=== PATIENT | female | born 1980 | race Asian ===

== ENCOUNTER 2018-02-03 05:50 | Inpatient (IN) | payer MEDICAID, SELFPAY ==
[~2018-02-03 05:50] MED LIST: Citric Acid/Sodium Citrate Solution 30 ML Cup PO SCH; Oxytocin/0.9 % Sodium Chloride 30 UNIT/500 ML BAG IV SCH; Sodium Chloride 0.9% 2.5 ML Syringe FLUSH PRN; ceFAZolin 1 GM in Premix Bag 1 BAG IV ONE
[2018-02-03] MEDS: Lactated Ringers 1,000 ML IV SCH ×2 (06:09→07:20)
[2018-02-03] MEDS ORDERED: Sodium Chloride 0.9% 20 ML ONE ×2 (06:53→08:06)
[2018-02-03] MEDS ORDERED: ePHEDrine 50 MG/ML SDV ONE (06:53)
[2018-02-03] MEDS ORDERED: Ondansetron 4 MG/2 ML SDV ONE (06:53)
[2018-02-03] MEDS ORDERED: Morphine PF 1 MG/ML Amp ONE (06:53)
[2018-02-03] MEDS ORDERED: Oxytocin 10 Units/1 ML SDV ONE (06:55)
--- NOTE | 2018-02-03 07:20 | PCM.PREANE ---
Preanesthetic Assessment - Anesthesia/Transfusion/Family Hx Anesthesia History: Prior Anesthesia Without Reaction (spinals for c-sections only - no GA) Family History of Anesthesia Reaction: No Transfusion History: No Prior Transfusion(s) - Review of Systems General: No Symptoms Pulmonary: No Symptoms Cardiovascular: No Symptoms Gastrointestinal: No Symptoms Neurological: No Symptoms Other: Reports: None - Physical Assessment NPO Status Date: 02/02/18 NPO Status Time: 23:10 Blood Pressure: 105/76 Height: 5 ft Weight: 122 lb ASA Class: 2 Mental Status: Alert & Oriented x3 Airway Class: Mallampati = 2 Dentition: Reports: Normal Dentition Thyro-Mental Finger Breadths: 3 Mouth Opening Finger Breadths: 3 ROM/Head Extension: Full Lungs: Clear to Auscultation, Normal Respiratory Effort Cardiovascular: Regular Rate, Regular Rhythm - Lab Values: Laboratory Last Values WBC 8.22 K/uL (4.0-11.0) 02/01/18 12:00 RBC 3.83 M/uL (4.30-5.90) L 02/01/18 12:00 Hgb 10.0 g/dL (12.0-16.0) L 02/01/18 12:00 Hct 31.1 % (36.0-46.0) L 02/01/18 12:00 MCV 81.2 fL (80.0-98.0) 02/01/18 12:00 MCH 26.1 pg (27.0-32.0) L 02/01/18 12:00 MCHC 32.2 g/dL (31.0-37.0) 02/01/18 12:00 RDW Std Deviation 43.7 fl (28.0-62.0) 02/01/18 12:00 RDW Coeff of Miroslava 15 % (11.0-15.0) 02/01/18 12:00 Plt Count 138 K/uL (150-400) L 02/01/18 12:00 MPV 9.00 fL (7.40-12.00) 02/01/18 12:00 Nucleated RBC % 0.0 /100WBC 02/01/18 12:00 Nucleated RBCs # 0 K/uL 02/01/18 12:00 Blood Type B POSITIVE 02/01/18 12:00 Antibody Screen NEGATIVE 02/01/18 12:00 - Allergies Allergies/Adverse Reactions: Allergies Allergy/AdvReac Type Severity Reaction Status Date / Time No Known Allergies Allergy Verified 01/28/18 10:26 - Blood Blood Available: No Product(s) Available: None - Anesthesia Plan Free Text/Narrative:: SAB for Pt states that the previous 2 c-sections they had trouble placing her spinal "because I'm so little" - pt does not remember if they had to go to a different level, she just recalls that it took a long time - Acknowledgements Anesthesia Type Planned: Spinal Pt an Appropriate Candidate for the Planned Anesthesia: Yes Alternatives and Risks of Anesthesia Discussed w Pt/Guardian: Yes Pt/Guardian Understands and Agrees with Anesthesia Plan: Yes PreAnesthesia Questionnaire - Past Health History Medical/Surgical History: Denies Medical/Surgical History HEENT History: Reports: Other (See Below) Other HEENT History: wears glasses/contacts Genitourinary History: Reports: None PNP History: Reports: - Past Surgical History Head Surgeries/Procedures: Reports: None Female Surgical History: Reports: Section - SUBSTANCE USE Smoking Status *Q: Never Smoker Second Hand Smoke Exposure: No Recreational Drug Use History: No - HOME MEDS Home Medications: Home Meds . [No Known Home Meds] 01/28/18 [History] - CURRENT (IN HOUSE) MEDS Current Meds: Current Medications Citric Acid/Sodium Citrate (Bicitra Solution) 30 ml PO .ONCE SOSA Lactated Ringer's (Ringers, Lactated) 1,000 mls @ 500 mls/hr IV .BOLUS SOSA Last Admin: 02/03/18 06:09 Dose: 500 mls/hr Oxytocin/Sodium Chloride (Oxytocin 30 Unit/500 Ml-Ns) 30 unit in 500 mls @ 250 mls/hr IV TITRATE SOSA Sodium Chloride (Saline Flush) 10 ml FLUSH ASDIRECTED PRN PRN Reason: Keep Vein Open Sodium Chloride (Saline Flush) 2.5 ml FLUSH ASDIRECTED PRN PRN Reason: Keep Vein Open Discontinued Medications Ephedrine Sulfate (Ephedrine Sulfate) Confirm Administered Dose 50 mg .ROUTE .STK-MED ONE Stop: 02/03/18 06:54 Cefazolin Sodium/Dextrose 1 gm (/ Premix) 50 mls @ 100 mls/hr IV ONETIME ONE Stop: 02/01/18 11:47 Sodium Chloride (Normal Saline) Confirm Administered Dose 20 mls @ as directed .ROUTE .STK-MED ONE Stop: 02/03/18 06:54 Morphine Sulfate (Duramorph Pf) Confirm Administered Dose 1 mg .ROUTE .STK-MED ONE Stop: 02/03/18 06:54 Ondansetron HCl (Zofran) Confirm Administered Dose 4 mg .ROUTE .STK-MED ONE Stop: 02/03/18 06:54 Oxytocin (Pitocin) Confirm Administered Dose 20 unit .ROUTE .STK-MED ONE Stop: 02/03/18 06:56
[2018-02-03] MEDS ORDERED: Citric Acid/Sodium Citrate Solution 30 ML Cup ONE (07:38)
[2018-02-03] MEDS ORDERED: ceFAZolin 1 GM Vial ONE (08:06)
[2018-02-03] MEDS ORDERED: Glycopyrrolate 0.2 MG/ML SDV ONE ×2 (08:08→08:12)
[2018-02-03] MEDS ORDERED: diphenhydrAMINE 50 MG/ML SDV IVPUSH PRN ×2 (08:31→08:47)
[2018-02-03] MEDS ORDERED: Nalbuphine 10 MG/ML 10 ML MDV IVPUSH PRN (08:31)
[2018-02-03] MEDS ORDERED: Naloxone 0.4 MG/ML Syringe IVPUSH PRN (08:31)
[2018-02-03] MEDS ORDERED: Octyl 2-Cyanoacrylate 1 Tube ONE (08:45)
[2018-02-03] MEDS ORDERED: Ondansetron 4 MG/2 ML SDV IV PRN (08:47)
[2018-02-03] MEDS ORDERED: Bisacodyl 10 MG Supp RECTAL PRN (08:47)
[2018-02-03] MEDS ORDERED: Lanolin 100% Cream 7 GM Tube TOP PRN (08:47)
[2018-02-03] MEDS ORDERED: Acetaminophen/oxyCODONE 325-5 MG Tab PO PRN (08:47)
--- NOTE | 2018-02-03 08:50 | PCM.LDHP ---
L&D History of Present Illness - General Date of Service: 02/03/18 Admit Problem/Dx: Patient Status Order with Admit Dx/Problem 02/01/18 11:18 Patient Status [ADT] Routine 02/03/18 08:47 Patient Status [ADT] Routine Admission Diagnosis/Problem Admission Diagnosis/Problem Source of Information: Patient History Limitations: Reports: No Limitations - History of Present Illness Improves with: Reports: None Worsens with: Reports: None Associated Symptoms: Reports: N - Related Data Allergies/Adverse Reactions: Allergies Allergy/AdvReac Type Severity Reaction Status Date / Time No Known Allergies Allergy Verified 01/28/18 10:26 Home Medications: Home Meds . 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: - Past Surgical History Head Surgeries/Procedures: Reports: None Female Surgical History: Reports: Section Social & Family History - Family History Family Medical History: Noncontributory - Tobacco Use Smoking Status *Q: Never Smoker Second Hand Smoke Exposure: No - Caffeine Use Caffeine Use: Reports: Coffee, Soda - Recreational Drug Use Recreational Drug Use: No H&P Review of Systems - Review of Systems: Review Of Systems: See Below General: Reports: No Symptoms HEENT: Reports: No Symptoms Pulmonary: Reports: No Symptoms Cardiovascular: Reports: No Symptoms Gastrointestinal: Reports: No Symptoms Genitourinary: Reports: No Symptoms Musculoskeletal: Reports: No Symptoms Skin: Reports: No Symptoms Psychiatric: Reports: No Symptoms Neurological: Reports: No Symptoms Hematologic/Lymphatic: Reports: No Symptoms Immunologic: Reports: No Symptoms L&D Exam - Exam Exam: See Below - Vital Signs Vital Signs: Last Vital Signs Temp Pulse Resp BP 105/76 02/03/18 07:30 Pulse Ox Weight: 55.338 kg - OB Specific Fundal Height In cm: 38 Contraction Intensity: Mild Movement: Active Heart Tones: Present Presentation: Vertex - Exam General: Alert, Oriented HEENT: PERRLA, Conjunctiva Clear, EACs Clear, EOMI, Hearing Intact, Mucosa Moist & Ovilla, Nares Patent, Normal Nasal Septum, Posterior Pharynx Clear, TMs Clear Neck: Supple, Trachea Midline Lungs: Clear to Auscultation, Normal Respiratory Effort Cardiovascular: Regular Rate, Regular Rhythm GI/Abdominal Exam: Normal Bowel Sounds, Soft, Non-Tender, No Organomegaly, No Distention, No Abnormal Bruit, No Mass, Pelvis Stable Rectal Exam: Normal Exam, Normal Rectal Tone Genitourinary: Normal external exam, Normal bimanual exam, Normal speculum exam Back Exam: Normal Inspection, Full Range of Motion Extremities: Normal Inspection, Normal Range of Motion, Non-Tender, No Pedal Edema, Normal Capillary Refill Skin: Warm, Dry, Intact Neurological: Cranial Nerves Intact, Reflexes Equal Bilateral Psychiatric: Alert, Normal Affect, Normal Mood - Patient Data Lab Results Last 24 hrs: Laboratory Results - last 24 hr 02/01/18 Range/Units 12:00 Blood Type B POSITIVE Antibody Screen NEGATIVE Crossmatch See Detail Result Diagrams: 02/01/18 12:00 Problem List Initiated/Reviewed/Updated: Yes Orders Last 24hrs: Active Orders 24 hr Category Date Time Status Patient Status [ADT] Routine ADT 02/03/18 08:47 Ordered Ambulate [RC] PER UNIT ROUTINE Care 02/03/18 08:47 Ordered Bradycardia-Neuroaxis [employer] [RC] ROUTINE Care 02/03/18 08:31 Active Communication Order [RC] PER UNIT ROUTINE Care 02/03/18 08:47 Ordered Communication Order [RC] PER UNIT ROUTINE Care 02/03/18 08:47 Ordered Communication Order [RC] Per Unit Routine Care 02/03/18 08:47 Ordered Hypertension-Neuroaxis [employer] [RC] ROUTINE Care 02/03/18 08:31 Active Hypotension-Neuroaxis [employer] [RC] ROUTINE Care 02/03/18 08:31 Active May Shower [RC] ASDIRECTED Care 02/03/18 08:47 Ordered Oxygen Therapy [RC] PER UNIT ROUTINE Care 02/03/18 08:31 Active RT Incentive Spirometry [RC] Q2HWA Care 02/03/18 08:47 Ordered Vital Signs [RC] PER UNIT ROUTINE Care 02/03/18 08:47 Ordered Vital Signs [RC] Q1H Care 02/03/18 08:31 Active HEMOGLOBIN/HEMATOCRIT,HH [HEME] Timed Lab 02/04/18 05:11 Ordered RED BLOOD CELLS LP [BBK] Stat Lab 02/03/18 07:23 Results Acetaminophen/oxyCODONE [Percocet 325-5 MG] Med 02/03/18 08:47 Ordered 1 tab PO Q4H PRN Acetaminophen/oxyCODONE [Percocet 325-5 MG] Med 02/03/18 08:47 Ordered 2 tab PO Q4H PRN Bisacodyl [Dulcolax] Med 02/03/18 08:47 Ordered 10 mg RECTAL .ONCE PRN Docusate Sodium [Colace] Med 02/03/18 09:00 Ordered 100 mg PO BID Ibuprofen [Motrin] Med 02/03/18 08:47 Ordered 800 mg PO Q8H PRN Ketorolac [Toradol] Med 02/03/18 09:00 Ordered 30 mg IVPUSH Q6H Lactated Ringers @ 125 MLS/HR(1000ml) Med 02/03/18 09:00 Ordered Lactated Ringers [Ringers, Lactated] 1,000 ml IV ASDIRECTED Lanolin [Lansinoh HPA] Med 02/03/18 08:47 Ordered See Dose Instructions TOP ASDIRECTED PRN Nalbuphine [Nubain] Med 02/03/18 08:31 Active 5 mg IVPUSH Q3H PRN Naloxone [Narcan] Med 02/03/18 08:31 Active 0.1 mg IVPUSH ONETIME PRN Ondansetron [Zofran] Med 02/03/18 08:47 Ordered 4 mg IV Q4H PRN diphenhydrAMINE [Benadryl] Med 02/03/18 08:31 Active 25 mg IVPUSH Q4H PRN diphenhydrAMINE [Benadryl] Med 02/03/18 08:47 Ordered 25 mg IVPUSH Q6H PRN AN Neuroaxis Duramorph Precaution Reflex [OM.PC] PER Oth 02/03/18 08:45 Ordered UNIT ROUTINE AN Neuroaxis Duramorph Precaution Reflex [OM.PC] PER Ot 02/04/18 08:45 Ordered UNIT ROUTINE Assess Lochia [WOMSER] Per Unit Routine Ot 02/03/18 08:47 Ordered Assess Uterine Involution [WOMSER] Per Unit Routine Oth 02/03/18 08:47 Ordered Breast Pump [WOMSER] Per Unit Routine Oth 02/03/18 08:47 Ordered Peripheral IV Discontinue [OM.PC] Routine Oth 02/03/18 08:47 Ordered Sequential Compression Device [OM.PC] Per Unit Routine Oth 02/03/18 08:47 Ordered Medication Orders Citric Acid/Sodium Citrate (Bicitra Solution) 30 ml PO .ONCE SOSA Diphenhydramine HCl (Benadryl) 25 mg IVPUSH Q4H PRN PRN Reason: Itching Stop: 02/04/18 08:31 Lactated Ringer's (Ringers, Lactated) 1,000 mls @ 500 mls/hr IV .BOLUS SOSA Last Admin: 02/03/18 07:20 Dose: 500 mls/hr Infusion: 02/03/18 07:20 Dose: 500 mls/hr Admin: 02/03/18 06:09 Dose: 500 mls/hr Oxytocin/Sodium Chloride (Oxytocin 30 Unit/500 Ml-Ns) 30 unit in 500 mls @ 250 mls/hr IV TITRATE SOSA Nalbuphine HCl (Nubain) 5 mg IVPUSH Q3H PRN PRN Reason: Pruritis Stop: 02/04/18 08:31 Naloxone HCl (Narcan) 0.1 mg IVPUSH ONETIME PRN PRN Reason: Respiratory Depression Stop: 02/04/18 08:31 Sodium Chloride (Saline Flush) 10 ml FLUSH ASDIRECTED PRN PRN Reason: Keep Vein Open Sodium Chloride (Saline Flush) 2.5 ml FLUSH ASDIRECTED PRN PRN Reason: Keep Vein Open Assessment/Plan Comment:: Term for elective repeat C/section.
--- NOTE | 2018-02-03 08:51 | PCM.OPNOTE ---
- General Post-Op/Procedure Note Date of Surgery/Procedure: 02/03/18 Operative Procedure(s): Repeat C/ section. Pre Op Diagnosis: IUP 39+ previous C/section. Post-Op Diagnosis: Same Anesthesia Technique: Spinal Primary Surgeon: Chano Gonzales Field Control Inspector: Vanessa Carr EBL in mLs: 600 Complications: None Condition: Good
[2018-02-03] MEDS ORDERED: Lactated Ringers 1,000 ML IV SCH (09:00)
[2018-02-03] MEDS: Ketorolac 30 MG/ML SDV IVPUSH SCH ×3 (09:39→21:16)
--- NOTE | 2018-02-03 10:03 | PCM.POSTAN ---
POST ANESTHESIA ASSESSMENT - MENTAL STATUS Mental Status: Alert, Oriented - RESPIRATORY Respiratory Status: Respiratory Rate WNL, Airway Patent, O2 Saturation Stable - CARDIOVASCULAR CV Status: Pulse Rate WNL, Blood Pressure Stable, Low Blood Pressure (pt asymptomatic and runs low to begin with ) - GASTROINTESTINAL GI Status: No Symptoms - PAIN Pain Score: 0 (spinal still inctact) - POST OP HYDRATION Hydration Status: Adequate & Stable - OBSERVATIONS Free Text/Narrative:: Pt stable for discharge to phase II recovery on OB
[2018-02-03] MEDS: Docusate Sodium 100 MG Cap PO SCH ×2 (10:53→21:19)
--- NOTE | 2018-02-03 11:12 | OR ---
SURGEON: Chano Gonzales MD DATE OF PROCEDURE: POSTOPERATIVE DIAGNOSES: 1. Intrauterine , 39 weeks. 2. Previous section, admitted for elective repeat section. POSTOPERATIVE DIAGNOSES: 1. Intrauterine , 39 weeks. 2. Previous section, admitted for elective repeat section. OPERATION PERFORMED: Repeat low-transverse section. CONTACT OFFICER: JANNETTE Amaral ANESTHESIA: Spinal by Jay Dent and Britton Solis M.D. ESTIMATED BLOOD LOSS: 600 mL. COMPLICATIONS: None. FINDINGS: Female fetus, score reported to be 8 and 9. The weight is not available. INDICATION FOR SURGERY: This patient is 37. She is 39+ weeks. She has 2 previous sections. She is admitted for elective repeat section. PROCEDURE IN DETAIL: The patient brought to the OR, properly identified, and after adequate level of spinal anesthesia with a Burnett catheter in the bladder, time-out taken and after that confirmed, the patient was prepped and draped in sterile fashion as usual. Low-transverse Pfannenstiel skin incision was done through the old scar. The Galindo's fascia and rectus fascia were opened in direction of the incision. The 2 recti muscles were and peritoneal cavity was entered. Bladder flap was raised in the usual manner pushing the bladder away from the lower uterine segment. Low-transverse uterine incision was done and extended manually with the hand. Fetus was in a vertex position, delivered without any problem, cried immediately. score reported to be 8 and 9. The placenta delivered spontaneous, complete, and intact and repair of the lower uterine segment was done with 2-0 Vicryl continuous interlocking in 2 layers. The peritoneal cavity evacuated completely from all blood and blood clot and closed with 3-0 Vicryl continuous. Then the rectus fascia was closed with #1 PDS single strand continuous, the Galindo's fascia with 3-0 Vicryl continuous, and the skin closed in a subcuticular fashion with 3-0 Vicryl on a Josh needle and Dermabond. Instrument and sponge count was correct. The patient tolerated the procedure well, went to recovery room in stable general condition. SUSAN / JOSE /[id number]
--- NOTE | 2018-02-03 14:49 | PCM48HPAN ---
Post Anesthesia Note - EVALUATION WITHIN 48HRS OF ANESTHETIC Vital Signs in Normal Range: Yes Patient Participated in Evaluation: Yes Respiratory Function Stable: Yes Airway Patent: Yes Cardiovascular Function Stable: Yes Hydration Status Stable: Yes Pain Control Satisfactory: Yes Nausea and Vomiting Control Satisfactory: Yes Mental Status Recovered: Yes Resp Rate: 14 Blood Pressure: 105/76 - COMMENTS/OBSERVATIONS Free Text/Narrative:: Pt doing well postop. States she had a much better experience with the spinal this time as opposed to previous c-sections. No nausea or pain control issues.
[2018-02-04] MEDS: Ketorolac 30 MG/ML SDV IVPUSH SCH ×2 (02:47→09:09)
[2018-02-04] MEDS: Sodium Chloride 0.9% 10 ML Syringe FLUSH PRN ×3 (02:49→02:52)
--- NOTE | 2018-02-04 07:56 | PCM.PNPP ---
- General Info Date of Service: 02/04/18 Admission Dx/Problem (Free Text): Patient Status Order with Admit Dx/Problem 02/01/18 11:18 Patient Status [ADT] Routine 02/03/18 08:47 Patient Status [ADT] Routine Admission Diagnosis/Problem Admission Diagnosis/Problem Functional Status: Reports: Pain Controlled, Tolerating Diet, Ambulating, Urinating - Review of Systems General: Reports: No Symptoms HEENT: Reports: No Symptoms Pulmonary: Reports: No Symptoms Cardiovascular: Reports: No Symptoms Gastrointestinal: Reports: No Symptoms Genitourinary: Reports: No Symptoms Musculoskeletal: Reports: No Symptoms Skin: Reports: No Symptoms Neurological: Reports: No Symptoms Psychiatric: Reports: No Symptoms - Patient Data Vital Signs - Most Recent: Last Vital Signs Temp 36.3 C 02/04/18 04:00 Pulse 86 02/04/18 04:00 Resp 16 02/04/18 07:00 BP 94/60 02/04/18 04:00 Pulse Ox 95 02/04/18 07:00 Weight - Most Recent: 55.338 kg I&O - Last 24 Hours: Intake & Output 02/03/18 02/04/18 02/04/18 22:59 06:59 14:59 Intake Total 998 Output Total 185 425 Balance 813 -425 Lab Results - Last 24 Hours: Laboratory Results - last 24 hr 02/01/18 02/04/18 Range/Units 12:00 05:20 Hgb 7.8 L (12.0-16.0) g/dL Hct 24.4 L (36.0-46.0) % Blood Type B POSITIVE Antibody Screen NEGATIVE Crossmatch See Detail Med Orders - Current: Current Medications Bisacodyl (Dulcolax) 10 mg RECTAL .ONCE PRN PRN Reason: Constipation Citric Acid/Sodium Citrate (Bicitra Solution) 30 ml PO .ONCE SOSA Diphenhydramine HCl (Benadryl) 25 mg IVPUSH Q4H PRN PRN Reason: Itching Stop: 02/04/18 08:31 Diphenhydramine HCl (Benadryl) 25 mg IVPUSH Q6H PRN PRN Reason: Itching or Nausea Docusate Sodium (Colace) 100 mg PO BID SOSA Last Admin: 02/03/18 21:19 Dose: 100 mg Emollient Ointment (Lansinoh Hpa) 0 gm TOP ASDIRECTED PRN PRN Reason: Sore Nipples Lactated Ringer's (Ringers, Lactated) 1,000 mls @ 500 mls/hr IV .BOLUS [facility] Last Admin: 02/03/18 07:20 Dose: 500 mls/hr Oxytocin/Sodium Chloride (Oxytocin 30 Unit/500 Ml-Ns) 30 unit in 500 mls @ 250 mls/hr IV TITRATE [facility] Lactated Ringer's (Ringers, Lactated) 1,000 mls @ 125 mls/hr IV ASDIRECTED [facility] Ibuprofen (Motrin) 800 mg PO Q8H PRN PRN Reason: mild pain or fever Ketorolac Tromethamine (Toradol) [address] [facility] Stop: 02/04/18 09:01 Last Admin: 02/04/18 02:47 Dose: 30 mg Nalbuphine HCl (Nubain) 5 mg IVPUSH Q3H PRN PRN Reason: Pruritis Stop: 02/04/18 08:31 Naloxone HCl (Narcan) 0.1 mg IVPUSH ONETIME PRN PRN Reason: Respiratory Depression Stop: 02/04/18 08:31 Ondansetron HCl (Zofran) 4 mg IV Q4H PRN PRN Reason: Nausea/Vomiting Oxycodone/Acetaminophen (Percocet 325-5 Mg) 1 tab PO Q4H PRN PRN Reason: Pain (moderate 4-6) Oxycodone/Acetaminophen (Percocet 325-5 Mg) 2 tab PO Q4H PRN PRN Reason: Pain (moderate 4-6) Sodium Chloride (Saline Flush) 10 ml FLUSH ASDIRECTED PRN PRN Reason: Keep Vein Open Last Admin: 02/04/18 02:52 Dose: 10 ml Sodium Chloride (Saline Flush) 2.5 ml FLUSH ASDIRECTED PRN PRN Reason: Keep Vein Open Discontinued Medications Cefazolin Sodium (Ancef) Confirm Administered Dose 1 gm .ROUTE .STK-MED ONE Stop: 02/03/18 08:07 Citric Acid/Sodium Citrate (Bicitra Solution) Confirm Administered Dose 30 ml .ROUTE .STK-MED ONE Stop: 02/03/18 07:39 Last Admin: 02/03/18 07:57 Dose: 30 ml Ephedrine Sulfate (Ephedrine Sulfate) Confirm Administered Dose 50 mg .ROUTE .STK-MED ONE Stop: 02/03/18 06:54 Glycopyrrolate (Robinul) Confirm Administered Dose 0.2 mg .ROUTE .STK-MED ONE Stop: 02/03/18 08:09 Glycopyrrolate (Robinul) Confirm Administered Dose 0.2 mg .ROUTE .STK-MED ONE Stop: 02/03/18 08:13 Cefazolin Sodium/Dextrose 1 gm (/ Premix) 50 mls @ 100 mls/hr IV ONETIME ONE Stop: 02/01/18 11:47 Sodium Chloride (Normal Saline) Confirm Administered Dose 20 mls @ as directed .ROUTE .STK-MED ONE Stop: 02/03/18 06:54 Sodium Chloride (Normal Saline) Confirm Administered Dose 20 mls @ as directed .ROUTE .STK-MED ONE Stop: 02/03/18 08:07 Morphine Sulfate (Duramorph Pf) Confirm Administered Dose 1 mg .ROUTE .STK-MED ONE Stop: 02/03/18 06:54 Octyl Cyanoacrylate (Dermabond Advance) Confirm Administered Dose 1 applic .ROUTE .STK-MED ONE Stop: 02/03/18 08:46 Ondansetron HCl (Zofran) Confirm Administered Dose 4 mg .ROUTE .STK-MED ONE Stop: 02/03/18 06:54 Oxytocin (Pitocin) Confirm Administered Dose 20 unit .ROUTE .STK-MED ONE Stop: 02/03/18 06:56 - Interaction Infant Disposition, : in Room with Family Infant Interaction: Holding Infant Support Person: - Recovery Exam Fundal Tone: Firm Fundal Level: At Umbilicus Fundal Placement: Midline Lochia Amount: Scant Lochia Color: Rubra/Red Perineum Description: Intact, Minimal Bruising/Swelling Episiotomy/Laceration: None Bladder Status: Indwelling Catheter in Place Urinary Elimination: Other (see below) Other Urinary Elimination, : Due to void, skelton d/c'd 0400 - Exam General: Alert, Oriented, Cooperative, No Acute Distress Lungs: Clear to Auscultation, Normal Respiratory Effort Cardiovascular: Regular Rate, Regular Rhythm, No Murmurs GI/Abdominal Exam: Soft, Non-Tender Extremities: Normal Inspection, Normal Range of Motion, Non-Tender, No Pedal Edema, Normal Capillary Refill Skin: Warm, Dry, Intact Wound/Incisions: Healing Well Neurological: No New Focal Deficit, Normal Speech, Normal Tone, Strength Equal Bilateral Psy/Mental Status: Alert, Normal Affect, Normal Mood - Problem List & Annotations (1) Supervision of normal IUP (intrauterine ) in multigravida SNOMED Code(s): 840827064, 945875287, 605149018 Code(s): Z34.80 - ENCOUNTER FOR SUPRVSN OF NORMAL , UNSP TRIMESTER Status: Acute Priority: High Current Visit: Yes Qualifiers: Trimester: third trimester Qualified Code(s): Z34.83 - Encounter for supervision of other normal , third trimester (2) delivery delivered SNOMED Code(s): 137259006 Code(s): O82 - ENCOUNTER FOR DELIVERY WITHOUT INDICATION Status: Acute Priority: High Current Visit: Yes - Problem List Review Problem List Initiated/Reviewed/Updated: Yes - Plan Plan:: Term for elective repeat C/section. Post day 1 A: VSS, AF, Fundus -2bu, lochia small-scant, Incision dressing dry intact. bottle feeding, bonding well P: continue pp plan of care. Encouraged to walk halls and shower, dressing will be removed when wet
--- NOTE | 2018-02-04 08:52 | PCM.PNPP ---
- General Info Date of Service: 02/04/18 Functional Status: Reports: Pain Controlled - Review of Systems General: Reports: No Symptoms HEENT: Reports: No Symptoms Pulmonary: Reports: No Symptoms Cardiovascular: Reports: No Symptoms Gastrointestinal: Reports: No Symptoms Genitourinary: Reports: No Symptoms Musculoskeletal: Reports: No Symptoms Skin: Reports: No Symptoms Neurological: Reports: No Symptoms Psychiatric: Reports: No Symptoms - General Info Date of Service: 02/04/18 - Patient Data Vital Signs - Most Recent: Last Vital Signs Temp 36.3 C 02/04/18 08:00 Pulse 86 02/04/18 04:00 Resp 16 02/04/18 08:00 BP 90/53 L 02/04/18 08:00 Pulse Ox 97 02/04/18 08:00 Weight - Most Recent: 55.338 kg I&O - Last 24 Hours: Intake & Output 02/03/18 02/04/18 02/04/18 22:59 06:59 14:59 Intake Total 998 Output Total 185 425 Balance 813 -425 Lab Results - Last 24 Hours: Laboratory Results - last 24 hr 02/04/18 Range/Units 05:20 Hgb 7.8 L (12.0-16.0) g/dL Hct 24.4 L (36.0-46.0) % Med Orders - Current: Current Medications Bisacodyl (Dulcolax) 10 mg RECTAL .ONCE PRN PRN Reason: Constipation Citric Acid/Sodium Citrate (Bicitra Solution) 30 ml PO .ONCE [facility] Diphenhydramine HCl (Benadryl) 25 mg IVPUSH Q6H PRN PRN Reason: Itching or Nausea Docusate Sodium (Colace) 100 mg PO BID [facility] Last Admin: 02/03/18 21:19 Dose: 100 mg Emollient Ointment (Lansinoh Hpa) 0 gm TOP ASDIRECTED PRN PRN Reason: Sore Nipples Lactated Ringer's (Ringers, Lactated) 1,000 mls @ 500 mls/hr IV .BOLUS [facility] Last Admin: 02/03/18 07:20 Dose: 500 mls/hr Oxytocin/Sodium Chloride (Oxytocin 30 Unit/500 Ml-Ns) 30 unit in 500 mls @ 250 mls/hr IV TITRATE [facility] Lactated Ringer's (Ringers, Lactated) 1,000 mls @ 125 mls/hr IV ASDIRECTED [facility] Ibuprofen (Motrin) 800 mg PO Q8H PRN PRN Reason: mild pain or fever Ketorolac Tromethamine (Toradol) 30 mg IVPUSH Q6H [facility] Stop: 02/04/18 09:01 Last Admin: 02/04/18 02:47 Dose: 30 mg Ondansetron HCl (Zofran) 4 mg IV Q4H PRN PRN Reason: Nausea/Vomiting Oxycodone/Acetaminophen (Percocet 325-5 Mg) 1 tab PO Q4H PRN PRN Reason: Pain (moderate 4-6) Oxycodone/Acetaminophen (Percocet 325-5 Mg) 2 tab PO Q4H PRN PRN Reason: Pain (moderate 4-6) Sodium Chloride (Saline Flush) 10 ml FLUSH ASDIRECTED PRN PRN Reason: Keep Vein Open Last Admin: 02/04/18 02:52 Dose: 10 ml Sodium Chloride (Saline Flush) 2.5 ml FLUSH ASDIRECTED PRN PRN Reason: Keep Vein Open Discontinued Medications Cefazolin Sodium (Ancef) Confirm Administered Dose 1 gm .ROUTE .STK-MED ONE Stop: 02/03/18 08:07 Citric Acid/Sodium Citrate (Bicitra Solution) Confirm Administered Dose 30 ml .ROUTE .STK-MED ONE Stop: 02/03/18 07:39 Last Admin: 02/03/18 07:57 Dose: 30 ml Diphenhydramine HCl (Benadryl) 25 mg IVPUSH Q4H PRN PRN Reason: Itching Stop: 02/04/18 08:31 Ephedrine Sulfate (Ephedrine Sulfate) Confirm Administered Dose 50 mg .ROUTE .STK-MED ONE Stop: 02/03/18 06:54 Glycopyrrolate (Robinul) Confirm Administered Dose 0.2 mg .ROUTE .STK-MED ONE Stop: 02/03/18 08:09 Glycopyrrolate (Robinul) Confirm Administered Dose 0.2 mg .ROUTE .STK-MED ONE Stop: 02/03/18 08:13 Cefazolin Sodium/Dextrose 1 gm (/ Premix) 50 mls @ 100 mls/hr IV ONETIME ONE Stop: 02/01/18 11:47 Sodium Chloride (Normal Saline) Confirm Administered Dose 20 mls @ as directed .ROUTE .STK-MED ONE Stop: 02/03/18 06:54 Sodium Chloride (Normal Saline) Confirm Administered Dose 20 mls @ as directed .ROUTE .STK-MED ONE Stop: 02/03/18 08:07 Morphine Sulfate (Duramorph Pf) Confirm Administered Dose 1 mg .ROUTE .STK-MED ONE Stop: 02/03/18 06:54 Nalbuphine HCl (Nubain) 5 mg IVPUSH Q3H PRN PRN Reason: Pruritis Stop: 02/04/18 08:31 Naloxone HCl (Narcan) 0.1 mg IVPUSH ONETIME PRN PRN Reason: Respiratory Depression Stop: 02/04/18 08:31 Octyl Cyanoacrylate (Dermabond Advance) Confirm Administered Dose 1 applic .ROUTE .STK-MED ONE Stop: 02/03/18 08:46 Ondansetron HCl (Zofran) Confirm Administered Dose 4 mg .ROUTE .STK-MED ONE Stop: 02/03/18 06:54 Oxytocin (Pitocin) Confirm Administered Dose 20 unit .ROUTE .STK-MED ONE Stop: 02/03/18 06:56 - Interaction Infant Disposition, : [place] in Room with Family Infant Interaction: Holding Feeding: Attempted ; Nursed Fair/Poor Support Person: - Recovery Exam Fundal Tone: Firm Fundal Level: 1 Fingerbreadths Above Umbilicus Fundal Placement: Midline Lochia Amount: Scant Lochia Color: Rubra/Red Perineum Description: Intact, Minimal Bruising/Swelling Episiotomy/Laceration: None Bladder Status: Indwelling Catheter in Place Urinary Elimination: Other (see below) Other Urinary Elimination, : Due to void, skelton d/c'd 0400 - Exam General: Alert, Oriented HEENT: Pupils Equal Neck: Supple Lungs: Clear to Auscultation, Normal Respiratory Effort Cardiovascular: Regular Rate, Regular Rhythm GI/Abdominal Exam: Normal Bowel Sounds, Soft, Non-Tender, No Organomegaly, No Distention, No Abnormal Bruit, No Mass, Pelvis Stable Extremities: Normal Inspection, Normal Range of Motion, Non-Tender, No Pedal Edema, Normal Capillary Refill Skin: Warm, Dry, Intact Wound/Incisions: Healing Well Neurological: No New Focal Deficit Psy/Mental Status: Alert, Normal Affect, Normal Mood - Problem List Review Problem List Initiated/Reviewed/Updated: Yes - My Orders Last 24 Hours: My Active Orders 02/03/18 08:47 Patient Status [ADT] Routine Ambulate [RC] PER UNIT ROUTINE Communication Order [RC] PER UNIT ROUTINE May Shower [RC] ASDIRECTED RT Incentive Spirometry [RC] Q2HWA Acetaminophen/oxyCODONE [Percocet 325-5 MG] 1 tab PO Q4H PRN Acetaminophen/oxyCODONE [Percocet 325-5 MG] 2 tab PO Q4H PRN Bisacodyl [Dulcolax] 10 mg RECTAL .ONCE PRN Ibuprofen [Motrin] 800 mg PO Q8H PRN Lanolin [Lansinoh HPA] See Dose Instructions TOP ASDIRECTED PRN Ondansetron [Zofran] 4 mg IV Q4H PRN diphenhydrAMINE [Benadryl] 25 mg IVPUSH Q6H PRN Assess Lochia [WOMSER] Per Unit Routine Assess Uterine Involution [WOMSER] Per Unit Routine Breast Pump [WOMSER] Per Unit Routine Peripheral IV Discontinue [OM.PC] Routine Sequential Compression Device [OM.PC] Per Unit Routine 02/03/18 09:00 Docusate Sodium [Colace] 100 mg PO BID Ketorolac [Toradol] 30 mg IVPUSH Q6H Lactated Ringers [Ringers, Lactated] 1,000 ml IV ASDIRECTED - Assessment Assessment:: Status post section postoperative day #1 patient is doing well. - Plan Plan:: Term for elective repeat C/section. Post day 1 A: VSS, AF, Fundus -2bu, lochia small-scant, Incision dressing dry intact. bottle feeding, bonding well P: continue pp plan of care. Encouraged to walk halls and shower, dressing will be removed when wet
[2018-02-04] MEDS: Docusate Sodium 100 MG Cap PO SCH ×2 (09:09→20:43)
[2018-02-04] MEDS: Acetaminophen/oxyCODONE 325-5 MG Tab PO PRN (16:37)
[2018-02-04] MEDS: Ibuprofen 800 MG Tab PO PRN (20:43)
[2018-02-05] MEDS: Acetaminophen/oxyCODONE 325-5 MG Tab PO PRN ×4 (01:13→11:33)
[2018-02-05] MEDS: Ibuprofen 800 MG Tab PO PRN (08:10)
--- NOTE | 2018-02-05 08:56 | PCM.DCSUM1 ---
Discharge Summary - Hospital Course Free Text/Narrative:: Discharge home with . Follow up in 1 week for incision check and 6 weeks for post . Diagnosis: Stroke: No - Discharge Data Discharge Date: 02/05/18 Discharge Disposition: Home, Self-Care 01 Condition: Good - Discharge Diagnosis/Problem(s) (1) Supervision of normal IUP (intrauterine ) in multigravida SNOMED Code(s): 578188443, 262497017, [id number] ICD Code: Z34.80 - ENCOUNTER FOR SUPRVSN OF NORMAL , UNSP TRIMESTER Status: Acute Priority: High Current Visit: Yes Qualifiers: Trimester: third trimester Qualified Code(s): Z34.83 - Encounter for supervision of other normal , third trimester (2) delivery delivered SNOMED Code(s): 055295187 ICD Code: O82 - ENCOUNTER FOR DELIVERY WITHOUT INDICATION Status: Acute Priority: High Current Visit: Yes - Patient Summary/Data Operative Procedure(s) Performed: Repeat C/ section. - Patient Instructions Diet: Usual Diet as Tolerated Activity: As Tolerated, No Strenuous Activities, Rest and Relax Today Driving: May Drive Today Showering/Bathing: May Shower, No Tub Bathing/Swimming (For one week) Wound/Incision Care: Keep Operative Site/Wound Site Clean and Dry Notify Provider of: Fever, Increased Pain, Swelling and Redness, Drainage, Nausea and/or Vomiting Other/Special Instructions: Discharge home with infant. Follow up in 1 week for incision check and 6 weeks for post . - Discharge Plan Home Medications: Home Meds . [No Known Home Meds] 01/28/18 [History] Referrals: [facility] [Outside] Chano Gonzales MD [Physician] - (1 week- February 14 @ 8:30am w/ Dr. Gonzales 6 week- March 28 @ 9:30am w/ Dr. Gonzales ) - General Info Date of Service: 02/05/18 Admission Dx/Problem (Free Text: Patient Status Order with Admit Dx/Problem 02/01/18 11:18 Patient Status [ADT] Routine 02/03/18 08:47 Patient Status [ADT] Routine Admission Diagnosis/Problem Admission Diagnosis/Problem Functional Status: Reports: Pain Controlled, Tolerating Diet, Ambulating, Urinating - Review of Systems General: Reports: No Symptoms HEENT: Reports: No Symptoms Pulmonary: Reports: No Symptoms Cardiovascular: Reports: No Symptoms Gastrointestinal: Reports: No Symptoms Genitourinary: Reports: No Symptoms Musculoskeletal: Reports: No Symptoms Skin: Reports: No Symptoms Neurological: Reports: No Symptoms Psychiatric: Reports: No Symptoms - Patient Data Vitals - Most Recent: Last Vital Signs Temp 36.6 C 02/05/18 04:00 Pulse 78 02/05/18 04:00 Resp 16 02/05/18 04:00 BP 102/38 L 02/05/18 04:00 Pulse Ox 96 02/05/18 04:00 Weight - Most Recent: 55.338 kg Lab Results - Last 24 hrs: Laboratory Results - last 24 hr 02/01/18 Range/Units 12:00 Crossmatch See Detail Med Orders - Current: Current Medications Bisacodyl (Dulcolax) 10 mg RECTAL .ONCE PRN PRN Reason: Constipation Citric Acid/Sodium Citrate (Bicitra Solution) 30 ml PO .ONCE [facility] Diphenhydramine HCl (Benadryl) 25 mg IVPUSH Q6H PRN PRN Reason: Itching or Nausea Docusate Sodium (Colace) 100 mg PO BID [facility] Last Admin: 02/04/18 20:43 Dose: 100 mg Emollient Ointment (Lansinoh Hpa) 0 gm TOP ASDIRECTED PRN PRN Reason: Sore Nipples Lactated Ringer's (Ringers, Lactated) 1,000 mls @ 500 mls/hr IV [facility] Last Admin: 02/03/18 07:20 Dose: 500 mls/hr Oxytocin/Sodium Chloride (Oxytocin 30 Unit/500 Ml-Ns) 30 unit in 500 mls @ 250 mls/hr IV TITRATE [facility] Lactated Ringer's (Ringers, Lactated) 1,000 mls @ 125 mls/hr IV ASDIRECTED [facility] Ibuprofen (Motrin) 800 mg PO Q8H PRN PRN Reason: mild pain or fever Last Admin: 02/05/18 08:10 Dose: 800 mg Ondansetron HCl (Zofran) 4 mg IV Q4H PRN PRN Reason: Nausea/Vomiting Oxycodone/Acetaminophen (Percocet 325-5 Mg) 1 tab PO Q4H PRN PRN Reason: Pain (moderate 4-6) Last Admin: 02/05/18 08:09 Dose: 1 tab Oxycodone/Acetaminophen (Percocet 325-5 Mg) 2 tab PO Q4H PRN PRN Reason: Pain (moderate 4-6) Sodium Chloride (Saline Flush) 10 ml FLUSH ASDIRECTED PRN PRN Reason: Keep Vein Open Last Admin: 02/04/18 02:52 Dose: 10 ml Sodium Chloride (Saline Flush) 2.5 ml FLUSH ASDIRECTED PRN PRN Reason: Keep Vein Open Discontinued Medications Cefazolin Sodium (Ancef) Confirm Administered Dose 1 gm .ROUTE .STK-MED ONE Stop: 02/03/18 08:07 Citric Acid/Sodium Citrate (Bicitra Solution) Confirm Administered Dose 30 ml .ROUTE .STK-MED ONE Stop: 02/03/18 07:39 Last Admin: 02/03/18 07:57 Dose: 30 ml Diphenhydramine HCl (Benadryl) 25 mg IVPUSH Q4H PRN PRN Reason: Itching Stop: 02/04/18 08:31 Ephedrine Sulfate (Ephedrine Sulfate) Confirm Administered Dose 50 mg .ROUTE .STK-MED ONE Stop: 02/03/18 06:54 Glycopyrrolate (Robinul) Confirm Administered Dose 0.2 mg .ROUTE .STK-MED ONE Stop: 02/03/18 08:09 Glycopyrrolate (Robinul) Confirm Administered Dose 0.2 mg .ROUTE .STK-MED ONE Stop: 02/03/18 08:13 Cefazolin Sodium/Dextrose 1 gm (/ Premix) 50 mls @ 100 mls/hr IV ONETIME ONE Stop: 02/01/18 11:47 Sodium Chloride (Normal Saline) Confirm Administered Dose 20 mls @ as directed .ROUTE .STK-MED ONE Stop: 02/03/18 06:54 Sodium Chloride (Normal Saline) Confirm Administered Dose 20 mls @ as directed .ROUTE .STK-MED ONE Stop: 02/03/18 08:07 Ketorolac Tromethamine (Toradol) 30 mg IVPUSH Q6H [facility] Stop: 02/04/18 09:01 Last Admin: 02/04/18 09:09 Dose: 30 mg Morphine Sulfate (Duramorph Pf) Confirm Administered Dose 1 mg .ROUTE .STK-MED ONE Stop: 02/03/18 06:54 Nalbuphine HCl (Nubain) 5 mg IVPUSH Q3H PRN PRN Reason: Pruritis Stop: 02/04/18 08:31 Naloxone HCl (Narcan) 0.1 mg IVPUSH ONETIME PRN PRN Reason: Respiratory Depression Stop: 02/04/18 08:31 Octyl Cyanoacrylate (Dermabond Advance) Confirm Administered Dose 1 applic .ROUTE .STK-MED ONE Stop: 02/03/18 08:46 Ondansetron HCl (Zofran) Confirm Administered Dose 4 mg .ROUTE .STK-MED ONE Stop: 02/03/18 06:54 Oxytocin (Pitocin) Confirm Administered Dose 20 unit .ROUTE .STK-MED ONE Stop: 02/03/18 06:56 - Exam General: Reports: Alert, Oriented, Cooperative, No Acute Distress Lungs: Reports: Clear to Auscultation, Normal Respiratory Effort Cardiovascular: Reports: Regular Rate, Regular Rhythm, No Murmurs GI/Abdominal Exam: Soft, Non-Tender, Pelvis Stable (Female) Exam: Vaginal Bleeding Rectal (Female) Exam: Deferred Back Exam: Reports: Normal Inspection, Full Range of Motion Extremities: Normal Inspection, Normal Range of Motion, Non-Tender, No Pedal Edema, Normal Capillary Refill Skin: Reports: Warm, Dry, Intact Wound/Incisions: Reports: Healing Well, No Drainage Neurological: Reports: No New Focal Deficit, Normal Gait, Normal Speech, Normal Tone, Strength Equal Bilateral Psy/Mental Status: Reports: Alert, Normal Affect, Normal Mood
[2018-02-05] MEDS: Docusate Sodium 100 MG Cap PO SCH (11:32)
== END 2018-02-05 11:57 | disposition home or self-care (01) | DRG 766 ==
LOC: MW.OB 05:50
PROVIDERS: ADMIT Obstetrics & Gynecology; ATTEND Obstetrics & Gynecology
PROC: 10D00Z1 Extraction of Products of Conception, Low, Open Approach (ICD-10-PCS; principal; 2018-02-03)
DX: O34.211 Maternal care for low transverse scar from previous cesarean delivery (principal); Z3A.39 39 weeks gestation of pregnancy; Z37.0 Single live birth
CPT/HCPCS: 36415; 59025; 85014; 85018; 85027; 86850; 86900; 86901; 86920; 86921; 86922; A9270-GY; J0690; J1885; J2274; J2405; J2590; J7120